=== PATIENT | female | born 1940 | race Caucasian/White ===

== ENCOUNTER 2023-09-23 08:09 | Day surgery (SDC) | payer MEDICARE, BC ==
[~2023-09-23 08:09] MED LIST: Lidocaine 1% 4 ML ONE; Propofol 200 MG/20 ML SDV ONE; Sodium Chloride 0.9% 10 ML Syringe FLUSH PRN; Sodium Chloride 0.9% 10 ML Syringe FLUSH SCH
[2023-09-23] MEDS: Lactated Ringers 1,000 ML IV SCH (08:40)
[2023-09-23] MEDS ORDERED: Propofol 200 MG/20 ML SDV ONE (10:35)
[2023-09-23] MEDS ORDERED: ePHEDrine 50 MG/ML SDV ONE (10:38)
[2023-09-23 11:51] VITALS: BP 129/72; PULSE 67
== END 2023-09-23 11:43 | disposition home or self-care (01) ==
LOC: JD.SDS 08:09
PROVIDERS: ATTEND Surgery
DX: K22.70 Barrett's esophagus without dysplasia (principal); K29.50 Unspecified chronic gastritis without bleeding; K52.9 Noninfective gastroenteritis and colitis, unspecified; K44.9 Diaphragmatic hernia without obstruction or gangrene; K57.30 Diverticulosis of large intestine without perforation or abscess without bleeding; Q40.8 Other specified congenital malformations of upper alimentary tract; K21.9 Gastro-esophageal reflux disease without esophagitis; I10 Essential (primary) hypertension; E78.00 Pure hypercholesterolemia, unspecified; F41.1 Generalized anxiety disorder; F33.1 Major depressive disorder, recurrent, moderate; Z79.899 Other long term (current) drug therapy; Z88.0 Allergy status to penicillin; Z88.2 Allergy status to sulfonamides
CPT/HCPCS: 43239; 45380; J2704; J7120; 00813; 88305; 99100; J3490

== ENCOUNTER 2024-10-06 08:26 | Day surgery (SDC) | payer MEDICARE, BC ==
[~2024-10-06 08:26] MED LIST changes: -Lidocaine 1% 4 ML ONE; -Propofol 200 MG/20 ML SDV ONE
[2024-10-06] MEDS: Lactated Ringers 1,000 ML IV SCH (08:55)
[2024-10-06] MEDS ORDERED: Propofol 200 MG/20 ML SDV ONE (09:43)
[2024-10-06] MEDS ORDERED: Lidocaine 1% 4 ML ONE (09:43)
[2024-10-06 10:47] VITALS: BP 141/74; PULSE 65
== END 2024-10-06 11:06 | disposition home or self-care (01) ==
LOC: JD.SDS 08:26
PROVIDERS: ATTEND Surgery
DX: K31.89 Other diseases of stomach and duodenum (principal); K21.00 Gastro-esophageal reflux disease with esophagitis, without bleeding; K44.9 Diaphragmatic hernia without obstruction or gangrene; K25.9 Gastric ulcer, unspecified as acute or chronic, without hemorrhage or perforation; R13.10 Dysphagia, unspecified; E78.00 Pure hypercholesterolemia, unspecified; I10 Essential (primary) hypertension; Z87.19 Personal history of other diseases of the digestive system; Z98.890 Other specified postprocedural states; Z88.0 Allergy status to penicillin; Z88.2 Allergy status to sulfonamides; Z79.899 Other long term (current) drug therapy
CPT/HCPCS: 43239; C9777; J2003; J2704; J7120; 00731; 99100